=== PATIENT | female | born 1980 | race Hispanic/Latino ===

== ENCOUNTER → 2017-04-01 | Outpatient (CLI) | payer MEDICAID ==
[~2017-04-01] MED LIST: ISOVUE-370 50ML VIAL IV ONE
== END | disposition home or self-care (01) ==
LOC: OIH 10:09
PROVIDERS: ATTEND Family Medicine
DX: H91.90 Unspecified hearing loss, unspecified ear (principal); G93.89 Other specified disorders of brain
CPT/HCPCS: 70470; Q9967

== ENCOUNTER → 2022-07-17 | Outpatient (CLI) | payer BC, MEDICAID | END | disposition home or self-care (01) | LOC: SHCH 07:48 | PROVIDERS: ATTEND Internal Medicine | DX: R94.31 Abnormal electrocardiogram [ECG] [EKG] (principal); R06.02 Shortness of breath | CPT/HCPCS: 93306 ==

== ENCOUNTER → 2023-06-15 | Outpatient (CLI) | payer BC, MEDICAID ==
[~2023-06-15] VITALS: Ht 152.4 cm; Wt 73.5 kg
[~2023-06-15] MED LIST changes: +BUSP10TA3 PO; +CLOB10TA17 PO; -ISOVUE-370 50ML VIAL IV ONE; +LAMO200T PO; +LEVE750T4 PO; +LINA72CA PO; +OMEP40CA21 PO; +TOPI200T PO; +TRINTELLIX PO; +[UNRECOGNIZED DRUG - OTHER] PO
== END ==
LOC: RAH 10:21
PROVIDERS: ATTEND Internal Medicine Gastroenterology
DX: R10.13 Epigastric pain (principal); R93.2 Abnormal findings on diagnostic imaging of liver and biliary tract
CPT/HCPCS: 78227; 81025; A9537

== ENCOUNTER 2023-06-16 09:35 | Day surgery (SDC) | payer BC, MEDICAID ==
[2023-06-16] VITALS (11 sets, daily range): BP systolic 98–123; BP diastolic 54–79; PULSE 59–68; RESP 13–20
[~2023-06-16] VITALS: Ht 152.4 cm; Wt 72.1 kg
[2023-06-16] MEDS: 0.9%NACL 1000ML 1,000 ML IV ONE (10:44)
[2023-06-16] MEDS ORDERED: PROPOFOL 10 MG/ML 20ML VIAL IV ONE (12:09)
== END 2023-06-16 13:40 | disposition home or self-care (01) ==
LOC: ENDO 09:35 → DAH 09:35 → ENDO 13:40
PROVIDERS: ATTEND Internal Medicine Gastroenterology
DX: R10.13 Epigastric pain (principal); K29.50 Unspecified chronic gastritis without bleeding; K21.9 Gastro-esophageal reflux disease without esophagitis; K59.04 Chronic idiopathic constipation; K64.9 Unspecified hemorrhoids; J45.909 Unspecified asthma, uncomplicated; F41.9 Anxiety disorder, unspecified; R19.04 Left lower quadrant abdominal swelling, mass and lump; F32.9 Major depressive disorder, single episode, unspecified; G40.909 Epilepsy, unspecified, not intractable, without status epilepticus; Z83.3 Family history of diabetes mellitus; Z82.5 Family history of asthma and other chronic lower respiratory diseases; Z82.3 Family history of stroke; Z82.49 Family history of ischemic heart disease and other diseases of the circulatory system; Z98.890 Other specified postprocedural states
CPT/HCPCS: 43239; J7030 ×2; J2704; A4620; A4215 ×2; A4223; A7002; A4222; A4221; A4663; A4606; J3490

== ENCOUNTER 2023-07-22 16:38 | Emergency (ER) | payer BC, MEDICAID ==
[~2023-07-22] VITALS: Ht 152.4 cm; Wt 72.6 kg
[~2023-07-22 16:38] MED LIST changes: -CLOB10TA17 PO; +CLOB10TA4 PO
[2023-07-22 17:12] LABS: BASOPHILS # (AUTO) 0.02 K/uL (0.00-0.20); BASOPHILS % (AUTO) 0.3 % (0.0-5.0); EOSINOPHILS # (AUTO) 0.17 K/uL (0.00-0.70); HEMATOCRIT 39.1 % (36-48); IMMATURE GRANULOCYTE ABSOLUTE 0.01 K/uL (0-1); LYMPHOCYTES # (AUTO) 2.1 K/uL (1.0-4.8); MEAN CORPUSCULAR HEMOGLOBIN 29.6 pg (27.0-33.0); MEAN CORPUSCULAR HGB CONC 33.2 g/dL (32.0-36.0); MEAN CORPUSCULAR VOLUME 89.1 fL (79-99); MONOCYTES # (AUTO) 0.3 K/uL (0.1-1.0); MONOCYTES % (AUTO) 5.4 % (3.0-13.0); NEUTROPHILS # (AUTO) 3.2 K/uL (1.8-7.7); NEUTROPHILS % (AUTO) 55.1 % (40.0-77.0); PLATELET COUNT (AUTO) 268 K/uL (130-400); RED BLOOD CELL COUNT(AUTO) 4.39 MIL/uL (4.00-5.50); RED CELL DISTRIBUTION WIDTH 13.1 % (11.0-15.5); WHITE BLOOD COUNT (AUTO) 5.7 K/uL (4.8-10.8)
[2023-07-22 17:23] LABS: CREATININE 0.9 mg/dL (0.5-1.0); POTASSIUM 3.7 mmol/L (3.5-5.1)
[2023-07-22 17:27] LABS: ALBUMIN 3.5 g/dL (3.5-5.0); BILIRUBIN,TOTAL 0.1 mg/dL (0.2-1.0); TOTAL PROTEIN, SERUM 7.5 g/dL (6.0-8.3)
[2023-07-22 18:46] LABS: ADD UA MICROSCOPIC YES; APPEARANCE,URINE CLEAR (CLEAR); BILIRUBIN,URINE NEGATIVE (NEGATIVE); COLOR,URINE LIGHT-YELLOW (YELLOW); GLUCOSE, URINE (UA) NEGATIVE (NEGATIVE); KETONES,URINE NEGATIVE (NEGATIVE); LEUKOCYTE ESTERASE ,URINE 25 Leu/uL (NEGATIVE); NITRATE,URINE NEGATIVE (NEGATIVE); OCCULT BLOOD,URINE MODERATE (NEGATIVE); PROTEIN,URINE NEGATIVE (NEGATIVE); UROBILINOGEN,URINE 0.2 mg/dL (0.2-1.0)
[2023-07-22 18:50] LABS: BACTERIA,URINE RARE /HPF (None Seen); MUCUS,URINE RARE LPF (None Seen); SQUAMOUS EPITHELIAL CELL,UR RARE /HPF (0-2)
[2023-07-22] MEDS ORDERED: LAMO200T10 PO (19:24)
[2023-07-22] MEDS ORDERED: LEVE750T10 PO (19:25)
[2023-07-22] MEDS: DICYCLOMINE 20MG (10MG/ML) AMP IM ONE (19:47)
[2023-07-22 20:17] VITALS: BP 112/71; PULSE 57; RESP 20; O2SAT 100
[2023-07-22] MEDS ORDERED: DICY20TA2 PO (20:27)
[2023-07-22] MEDS ORDERED: CEPH500B PO (20:27)
== END 2023-07-22 20:47 | disposition home or self-care (01) ==
LOC: EDH 16:38
DX: K82.8 Other specified diseases of gallbladder (principal); N39.0 Urinary tract infection, site not specified; F41.9 Anxiety disorder, unspecified; Z79.899 Other long term (current) drug therapy; Z98.890 Other specified postprocedural states
CPT/HCPCS: 99284; 80053; 83690; 85025; 81001; 36415; 96372; J0500

== ENCOUNTER → 2023-07-29 | Outpatient (CLI) | payer BC, MEDICAID ==
[~2023-07-29] MED LIST changes: +CEPH500B PO; +DICY20TA2 PO; +LAMO200T10 PO; +LEVE750T10 PO
== END | disposition home or self-care (01) ==
LOC: RAH 07:16
PROVIDERS: ATTEND Internal Medicine
DX: R10.13 Epigastric pain (principal)
CPT/HCPCS: 78264; A9541

== ENCOUNTER 2023-08-09 06:35 | Day surgery (SDC) | payer BC, MEDICAID ==
[2023-08-05 10:09] LABS: BASOPHILS # (AUTO) 0.04 K/uL (0.00-0.20); BASOPHILS % (AUTO) 0.6 % (0.0-5.0); EOSINOPHILS % (AUTO) 1.5 % (0.0-8.0); HEMATOCRIT 41.1 % (36-48); IMMATURE GRANULOCYTE ABSOLUTE 0.02 K/uL (0-1); LYMPHOCYTES # (AUTO) 2.1 K/uL (1.0-4.8); LYMPHOCYTES % (AUTO) 31.8 % (21.0-51.0); MEAN CORPUSCULAR HEMOGLOBIN 29.3 pg (27.0-33.0); MEAN CORPUSCULAR HGB CONC 32.4 g/dL (32.0-36.0); MEAN CORPUSCULAR VOLUME 90.5 fL (79-99); MONOCYTES # (AUTO) 0.3 K/uL (0.1-1.0); MONOCYTES % (AUTO) 5.2 % (3.0-13.0); NEUTROPHILS # (AUTO) 3.9 K/uL (1.8-7.7); NEUTROPHILS % (AUTO) 60.6 % (40.0-77.0); PLATELET COUNT (AUTO) 288 K/uL (130-400); RED BLOOD CELL COUNT(AUTO) 4.54 MIL/uL (4.00-5.50); RED CELL DISTRIBUTION WIDTH 13.3 % (11.0-15.5); WHITE BLOOD COUNT (AUTO) 6.5 K/uL (4.8-10.8)
[2023-08-05 10:17] VITALS: BP 112/71; PULSE 65; RESP 18
[2023-08-05 10:38] LABS: CREATININE 0.9 mg/dL (0.5-1.0); POTASSIUM 3.6 mmol/L (3.5-5.1)
[2023-08-09] VITALS (17 sets, daily range): BP systolic 93–118; BP diastolic 47–70; PULSE 54–86; RESP 11–16
[~2023-08-09] VITALS: Ht 152.4 cm; Wt 73.6 kg
[~2023-08-09 06:35] MED LIST changes: -CEPH500B PO; -LAMO200T PO; -LEVE750T4 PO; +LORA10TA7 PO
[2023-08-09] MEDS ORDERED: CEFAZOLIN SODIUM 2 GM VIAL ONE (08:24)
[2023-08-09] MEDS: LACTATED RINGERS 1000ML 1,000 ML IV ONE (08:53)
[2023-08-09] MEDS ORDERED: HYDROMORPHONE 1 MG INJ ONE (09:52)
[2023-08-09] MEDS ORDERED: FAMOTIDINE 20MG VIAL IV ONE (09:52)
[2023-08-09] MEDS ORDERED: GLYCOPYRROLATE 0.2 MG/ML 5 ML VIAL ONE (09:57)
[2023-08-09] MEDS ORDERED: MIDAZOLAM HCL 1 MG/ML 2ML VIAL ONE (09:57)
[2023-08-09] MEDS ORDERED: PROPOFOL 10 MG/ML 20ML VIAL IV ONE (09:57)
[2023-08-09] MEDS ORDERED: ROCURONIUM BROMIDE 10MG/1ML 5ML VL ONE (09:58)
[2023-08-09] MEDS ORDERED: FENTANYL CITRATE PF 50 MCG/1 ML 2ML VIAL ONE (09:58)
[2023-08-09] MEDS ORDERED: BUPIVACAINE/PF 0.25% 30ML VIAL IJ ONE (10:03)
[2023-08-09] MEDS: CEFAZOLIN SODIUM 2 GM VIAL IVPB ONE (10:05)
[2023-08-09] MEDS: BUPIVACAINE/EPI/PF 0.25% 10ML VIAL IJ ONE (10:24)
[2023-08-09] MEDS ORDERED: IOHEXOL-350 50ML VIAL IV ONE (11:11)
[2023-08-09] MEDS: FENTANYL CITRATE PF 50 MCG/1 ML 2ML VIAL ONE (11:35)
== END 2023-08-09 13:10 | disposition home or self-care (01) ==
LOC: DAH 06:35
PROVIDERS: ATTEND Surgery
DX: K82.8 Other specified diseases of gallbladder (principal); K81.1 Chronic cholecystitis; J45.909 Unspecified asthma, uncomplicated; F41.9 Anxiety disorder, unspecified; K21.9 Gastro-esophageal reflux disease without esophagitis; F32.A Depression, unspecified; G40.909 Epilepsy, unspecified, not intractable, without status epilepticus; Z79.899 Other long term (current) drug therapy
CPT/HCPCS: 80048; 84703; 85025; 86850 ×2; 86900 ×2; 86901 ×2; 36415 ×2; 93005; 47563; 81025; 88304; 74300; A6260; A4663; J7030; A4215 ×2; C1758; J7120; J3490 ×4; J3010 ×2; J1170; J0665; J2250; J2704; Q9967 ×2; J0690 ×2; C1769 ×3; A4649 ×2; A4930; A4223; A4222; A4221; A4600; 48400; G0168

== ENCOUNTER 2025-01-12 10:42 | Emergency (ER) | payer BC, MEDICAID ==
[~2025-01-12] VITALS: Ht 149.9 cm; Wt 73.0 kg
[~2025-01-12 10:42] MED LIST changes: +CENO200T PO; +LAMO200T PO; +TOPI200C5 PO
[2025-01-12 11:06] LABS: IMMATURE GRANULOCYTE ABSOLUTE 0.02 K/uL (0-1); NUCLEATED RED BLOOD CELLS 0.0 % (0.0-0.19); PLATELET COUNT (AUTO) 324 K/uL (130-400); RED BLOOD CELL COUNT(AUTO) 4.14 MIL/uL (4.00-5.50); RED CELL DISTRIBUTION WIDTH 15.6 % (11.0-15.5); WHITE BLOOD COUNT (AUTO) 5.8 K/uL (4.8-10.8)
[2025-01-12 11:24] LABS: CREATININE 0.8 mg/dL (0.5-1.0); GLOMERULAR FILTR. RATE CALC 93.0 mL/min (>90); GLUCOSE,RANDOM 87.0 mg/dL (70-105); SODIUM SERUM 141.0 mmol/L (136-145); UREA NITROGEN, BLOOD 19.0 mg/dL (7-18)
[2025-01-12 11:27] LABS: ADD UA MICROSCOPIC NO; APPEARANCE,URINE CLEAR (CLEAR); GLUCOSE, URINE (UA) NEGATIVE (NEGATIVE); LEUKOCYTE ESTERASE ,URINE NEGATIVE Leu/uL (NEGATIVE); NITRATE,URINE NEGATIVE (NEGATIVE); OCCULT BLOOD,URINE NEGATIVE (NEGATIVE)
[2025-01-12] MEDS: 0.9%NACL 1000ML 1,000 ML IV STA (11:29)
--- NOTE | 2025-01-12 13:33 | ERN ---
ED Note History of Present Illness Stated Complaint: FEELING DIZZY Chief Complaint: Dizzy/Light Headed Time Seen by MD: 10:45 Time Seen by Midlevel: 10:48 Dictation: 44-year-old female with a history of seizure coming in with complaints of feeling dizzy. Patient was out in the lobby because she has a family member in one of the patient's that was being seen here. Patient states that she stood up from the lobby chair and felt dizzy. Patient states she is compliant with a home medications. Mother is at bedside and states she is acting at her baseline. Allergies: Coded Allergies: No Known Drug Allergies (Unverified Allergy, Unknown, 12/21/24) Home Meds Reported Medications Lamotrigine (Lamotrigine) 200 Mg Tablet, 2 TAB PO HS for 30 Days, #30 TAB 0 Refills 12/22/24 Topiramate (Topiramate ER) 200 Mg Cap.spr.24, 2 CAP PO HS for 30 Days, #60 CAP 0 Refills 12/22/24 Cenobamate (Xcopri) 200 Mg Tablet, 200 MG PO HS, TAB 12/21/24 Lamotrigine (Lamictal) 200 Mg Tablet, 200 MG PO HS, TAB 12/21/24 Past Medical History Past Medical History: Depression, Seizure Surgical History: Other Surgical History Other: temporal lobectomy, shunt, seizure implant Review of System Dictation Constitutional: Negative for fever,chills, and weight loss Eyes: Negative for injury, pain,redness, and discharge ENT: Negative for injury,pain or swelling Cardiovascular: Negative for chest pain, palpitations, and edema Respiratory: Negative for shortness of breath, cough, and wheezing, Abdomen/GI: Negative for abdominal pain, nausea, vomiting, diarrhea, and constipation Back: Negative for injury and pain : Negative for injury, bleeding and discharge MS/Extremity: Negative for injury and deformity Skin: Negative for rash, and discoloration Neuro: Negative for headache, weakness, numbness, tingling, and seizure complaining of dizziness Psych: Negative for suicide ideation, homicidal ideation, and hallucinations Review of Systems: was completed Initial Vital Sign VS Vital Signs Date Time Temp Pulse Resp B/P (MAP) Pulse Ox O2 Delivery O2 Flow Rate FiO2 01/12/25 10:44 98.8 57 16 110/66 100 Room Air 01/12/25 11:12 0 21 Physical Exam Dictation General: awake, alert, NAD Head/Face: Normocephalic, atraumatic Eyes: PERRL, EOMI, vision at baseline ENT: oral cavity clear, TMs clear, no signs of infection Neck: Trachea midline, supple, no nuchal rigidity Cardiovascular: RRR, normal S1/S2, No MRGs, no JVD Respiratory: CTAB, no respiratory distress, No rales or wheezes Abdomen: Soft, non-tender, non-distended, normal bowel sounds, no guarding or rebound. Skin: Warm, dry, normal turgor, no rash MS/Extremity: Pulses equal, no cyanosis, neurovascular intact, FROM Neuro: COAx4, GCS 15, strength 5/5, CN 2-12 intact, normal cerebellar exam, normal gait, Psych: Normal behavior, mood, and affect normal Results (Laboratory/Radiology) Laboratory/Radiology Laboratory Tests Test 01/12/25 10:39 01/12/25 11:15 White Blood Count 5.8 K/uL (4.8-10.8) Red Blood Count 4.14 MIL/uL (4.00-5.50) Hemoglobin 11.6 g/dL (12.0-16.0) L Hematocrit 35.7 % (36-48) L Mean Corpuscular Volume 86.2 fL (79-99) Mean Corpuscular Hemoglobin 28.0 pg (27.0-33.0) Mean Corpuscular Hemoglobin Concent 32.5 g/dL (32.0-36.0) Red Cell Distribution Width 15.6 % (11.0-15.5) H Platelet Count 324 K/uL (130-400) Mean Platelet Volume 10.1 fL (7.5-10.5) Immature Granulocyte % (Auto) 0.3 % (0-1) Neutrophils (%) (Auto) 50.4 % (40.0-77.0) Lymphocytes (%) (Auto) 42.1 % (21.0-51.0) Monocytes (%) (Auto) 5.5 % (3.0-13.0) Eosinophils (%) (Auto) 1.2 % (0.0-8.0) Basophils (%) (Auto) 0.5 % (0.0-5.0) Neutrophils # (Auto) 2.9 K/uL (1.8-7.7) Lymphocytes # (Auto) 2.4 K/uL (1.0-4.8) Monocytes # (Auto) 0.3 K/uL (0.1-1.0) Eosinophils # (Auto) 0.07 K/uL (0.00-0.70) Basophils # (Auto) 0.03 K/uL (0.00-0.20) Absolute Immature Granulocyte (auto 0.02 K/uL (0-1) Nucleated Red Blood Cells 0.0 % (0.0-0.19) Sodium Level 141 mmol/L (136-145) Potassium Level 4.1 mmol/L (3.5-5.1) Chloride Level 108 mmol/L (101-111) Carbon Dioxide Level 24 mmol/L (21-32) Blood Urea Nitrogen 19 mg/dL (7-18) H Creatinine 0.8 mg/dL (0.5-1.0) Glomerular Filtration Rate Calc 93 mL/min (>90) Random Glucose 87 mg/dL (70-105) Total Calcium 7.9 mg/dL (8.5-10.1) L Urine Color LIGHT-YELLOW (YELLOW) Urine Appearance CLEAR (CLEAR) Urine pH 7.0 (5.0-8.0) Urine Specific [place] 1.032 (1.001-1.031) Urine Protein NEGATIVE mg/dL (NEGATIVE) Urine Glucose (UA) NEGATIVE mg/dL (NEGATIVE) Urine Ketones NEGATIVE mg/dL (NEGATIVE) Urine Occult Blood NEGATIVE (NEGATIVE) Urine Nitrate NEGATIVE (NEGATIVE) Urine Bilirubin NEGATIVE mg/dL (NEGATIVE) Urine Urobilinogen 0.2 mg/dL (0.2-1.0) Urine Leukocyte Esterase NEGATIVE Danielle/uL TS: The orbits are unremarkable. SINUSES AND MASTOIDS: The paranasal sinuses and mastoid air cells are clear. BONES: No fracture. Left craniotomy changes. IMPRESSION: 1. No acute intracranial findings. 2. Stable right temporal lobe hypoattenuation area, likely chronic. 3. Unchanged right ventricular shunt catheter. 4. Left craniotomy changes. /[facility] Labs Reviewed?: Yes ED Course ED Course Orders Procedure Category Date Status Time Cbc With Differential LAB 01/12/25 Complete 10:50 Basic Metabolic Panel LAB 01/12/25 Complete 10:50 0.9%Nacl 1000ml (Ns PHA 01/12/25 Complete 1000ml) 10:50 Meclizine Hcl 25 Mg PHA 01/12/25 Complete (Antivert 25 Mg) 10:50 Urinalysis Profile LAB 01/12/25 Complete 10:50 Ct Head/Brain W/O CT 01/12/25 Resulted Contrast 10:50 Current Medications Medications (Trade) Dose Ordered Sig/Romario Route PRN Reason Start Time Stop Time Status Last Admin Dose Admin Meclizine HCl (ANTIvert 25 mg) 25 mg ONCE STAT PO 01/12/25 10:50 01/12/25 10:56 DC 01/12/25 11:35 Sodium Chloride 1,000 ml @ 1,000 mls/hr Q1H STAT IV 01/12/25 10:50 01/12/25 11:49 DC Vital Signs Date Time Temp Pulse Resp B/P (MAP) Pulse Ox O2 Delivery O2 Flow Rate FiO2 01/12/25 17:05 98.8 68 16 137/65 100 Room Air* 0 21 01/12/25 15:23 98.8 62 16 142/62 100 Room Air* 0 21 01/12/25 11:12 98.8 57 16 150/66 100 Room Air* 0 21 01/12/25 10:44 98.8 57 16 110/66 100 Room Air 1705/PATIENT NEUROLOGICALLY INTACT AT BASELINE PER HER MOTHER AND SON. SHE IS AWARE CT IS NEGATIVE THERE WAS NO SHUNT MALFUNCTION DISCHARGED HOME WITH DIZZINESS AND MECLIZINE Medical Decision Making MDM MDM: DIFFERENTIAL DIAGNOSIS: POLARITY TESTER SHUNT MALFUNCTION/SUBDURAL HEMATOMA/MIDLINE SHIFT/ELECTROLYTE IMBALANCE/DEHYDRATION/VERTIGO RATIONALE: TESTS CONSIDERED AND ORDERED SECONDARY TO SHARED DECISION MAKING I NCLUDE: PREVIOUS OUTSIDE RECORDS REVIEWED: OLD ER VISITS. RISK OF COMPLICATION AND/OR MORBIDITY OR MORTALITY OF PATIENT MANAGEMENT: NONE MEDICATIONS-PER MEDICATION RECONCILIATION NEED FOR HOSPITALIZATION: PATIENT DOES NOT MEET CRITERIA FOR HOSPITALIZATION. L NONE NEED FOR EMERGENCY MAJOR/MINOR SURGERY: NO THERE ARE NO SOCIAL CONCERNS WITH THIS PATIENT. PRESCRIPTION DRUG MANAGEMENT MECLIZINE PRESCRIPTIONS WILL INCLUDE SYMPTOMATIC CARE PATIENT'S PRIOR EXTERNAL MEDICAL RECORDS FROM OTHER ER VISITS WERE REVIEWED BY ME INDICATED. PRIOR TESTING AND RESULTS FROM PREVIOUS VISITS WERE REVIEWED. PRIOR TESTS WERE TAKEN INTO ACCOUNT WITH MEDICAL DECISION MAKING AND RESOURCE UTILIZATION, INDEPENDENT HISTORIAN/HISTORIANS WERE USED TO OBTAIN COMPLETE MEDICAL HISTORY. I INDEPENDENTLY INTERPRETED THE TEST THAT WERE PERFORMED, RESULTS WERE REVIEWED BY ME AND CONSIDERED FINDINGS ON RADIOLOGY IF ORDERED. MEDICAL MANAGEMENT AND EXAMINATION INTERPRETATION DISCUSSIONS WERE HAD BY ME WITH OTHER QUALIFIED HEALTHCARE PROFESSIONALS INDICATED FOR THE PATIENT'S CARE. DX & DISP Disposition: Discharge Departure Impression: Primary Impression: Dizziness Condition: Stable Scripts Meclizine HCl (Meclizine HCl) 25 Mg Tablet 25 MG PO TID for vertigo, #30 TAB 0 Refills Prov: MIC RAMIREZ 01/12/25 Additional Instructions: FOLLOW-UP WITH PRIMARY CARE PROVIDER IN 1 TO 2 DAYS. TAKE MEDICATIONS DIRECTED HERE IN THE EMERGENCY ROOM. OKAY TO CONTINUE HOME MEDICATIONS UNLESS OTHERWISE DISCUSSED DURING YOUR VISIT IN THE EMERGENCY ROOM TODAY. RETURN TO YOUR NEAREST EMERGENCY ROOM IF SYMPTOMS WORSEN OR IF THERE IS NO IMPROVEMENT. CALL 911 IF YOU NEED IMMEDIATE ASSISTANCE. TAKE TYLENOL OR MOTRIN [id number] NEEDED AND IF NO CONTRAINDICATIONS ARE PRESENT. INCREASE ORAL HYDRATION. A WOUND CULTURE OR URINE CULTURE WAS ORDERED HERE IN THE EMERGENCY ROOM DEPARTMENT PLEASE FOLLOW-UP WITH PRIMARY CARE PROVIDER AND ADVISE THEM TO GET REPEAT PORTS FROM OUR FACILITY. IF YOU HAD ANY TOSHA WRAP/SPLINTS T HAT WERE APPLIED HERE, PLEASE DO NOT REMOVE THEM UNTIL YOU SEE YOUR PRIMARY CARE OR SPECIALTY. TAKE MECLIZINE EVERY 8 HOURS FOR THE NEXT TWO DAYS. FOLLOW UP WITH YOUR PRIMARY CARE DOCTOR ON Tuesday FOR MANAGEMENT. Referrals: PERICO MCLAIN DO (PCP) Time of Disposition: 17:09 I have reviewed the case, and I agree with, Diagnosis and Plan DOMINGA CUI CNP Jan 12, 2025 13:33 MIC RAMIREZ Jan 12, 2025 17:11
--- NOTE | 2025-01-12 17:02 | HMCIMG ---
EXAM: CT Head Without IV contrast. CLINICAL HISTORY: sudden onset dizziness (Hx) / sudden onset dizziness for sure TECHNIQUE: Axial computed tomography images of the head/brain without intravenous contrast. COMPARISON: CT HEAD DATED 01/08 11:58 EDT FINDINGS: BRAIN: No evidence of acute hemorrhage. No mass lesion. 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 No midline shift or extra-axial collections. Left temporal lobe chronic changes of encephalomalacia VENTRICLES: No hydrocephalus. Exvacuolation of the left lateral ventricle. Right ventricular shunt catheter tip seen abutting the septum pellucidum. ORBITS: The orbits are unremarkable. SINUSES AND MASTOIDS: The paranasal sinuses and mastoid air cells are clear. BONES: No fracture. Left craniotomy changes. IMPRESSION: 1. No acute intracranial findings. 2. Stable right temporal lobe hypoattenuation area, likely chronic. 3. Unchanged right ventricular shunt catheter. 4. Left craniotomy changes. /[place]
--- NOTE | 2025-01-12 17:04 | NUR ---
PT NUMBER [phone]
[2025-01-12 17:05] VITALS: BP 137/65; PULSE 68; RESP 16; TEMP 98.8; O2SAT 100
[2025-01-12] MEDS ORDERED: MECL-302 PO (17:10)
== END 2025-01-12 17:13 | disposition home or self-care (01) ==
LOC: MERGE 10:42 → EDH 10:42
DX: R42 Dizziness and giddiness (principal); Z79.899 Other long term (current) drug therapy; Z98.890 Other specified postprocedural states
CPT/HCPCS: 36415; 70450; 80048; 81003; 82948; 85025; 99284

== ENCOUNTER 2025-03-19 11:10 | Emergency (ER) | payer BC, MEDICAID ==
[~2025-03-19] VITALS: Ht 149.9 cm; Wt 72.6 kg
[~2025-03-19 11:10] MED LIST changes: +MECL-302 PO
[2025-03-19 11:32] LABS: IMMATURE GRANULOCYTE ABSOLUTE 0.01 K/uL (0-1); NUCLEATED RED BLOOD CELLS 0.0 % (0.0-0.19); PLATELET COUNT (AUTO) 298 K/uL (130-400); RED BLOOD CELL COUNT(AUTO) 4.59 MIL/uL (4.00-5.50); RED CELL DISTRIBUTION WIDTH 16.9 % (11.0-15.5); WHITE BLOOD COUNT (AUTO) 6.3 K/uL (4.8-10.8)
[2025-03-19 11:40] LABS: CREATININE 0.9 mg/dL (0.5-1.0); GLOMERULAR FILTR. RATE CALC 80.0 mL/min (>90); GLUCOSE,RANDOM 96.0 mg/dL (70-105); SODIUM SERUM 141.0 mmol/L (136-145); UREA NITROGEN, BLOOD 21.0 mg/dL (7-18)
[2025-03-19 11:42] LABS: INR 0.97 (0.85-1.15)
[2025-03-19 11:49] LABS: APPEARANCE,URINE CLOUDY (CLEAR); GLUCOSE, URINE (UA) NEGATIVE (NEGATIVE); LEUKOCYTE ESTERASE ,URINE NEGATIVE Leu/uL (NEGATIVE); NITRATE,URINE NEGATIVE (NEGATIVE); OCCULT BLOOD,URINE +- (TRACE) (NEGATIVE)
[2025-03-19 11:52] LABS: HCG,QUALITATIVE URINE NEGATIVE (NEGATIVE)
[2025-03-19 11:52] LABS: HCG,QUANTITATIVE 0.0 mIU/mL (0-5)
[2025-03-19 11:54] LABS: SQUAMOUS EPITHELIAL CELL,UR FEW /HPF (0-2)
--- NOTE | 2025-03-19 13:31 | ERN ---
General Chief Complaint: Seizure Stated Complaint: HEADACHE/SEIZURE Time Seen by MD: 11:15 History of Present Illness Initial Comments 44-year-old female past medical history of seizures came in for 1 episode of seizure which occurred at home. Patient could this is a she has not postictal remember episode. Patient is having slight headache due to seizure activity. Patient denies trauma with the episode. Patient is on Keppra and has follow with neurology. Patient otherwise has no concerns. Allergies: Coded Allergies: No Known Drug Allergies (Unverified Allergy, Unknown, 06/15/23) Home Meds Active Scripts Meclizine HCl (Meclizine HCl) 25 Mg Tablet, 25 MG PO TID for vertigo, #30 TAB 0 Refills Prov:MIC RAMIREZ PERSON INVESTIGATOR 01/12/25 Dicyclomine HCl (Bentyl) 20 Mg Tab, 20 MG PO TIDP PRN for PAIN, #60 TAB Prov:BINA RUSH MD 07/22/23 Reported Medications Lamotrigine (Lamotrigine) 200 Mg Tablet, 2 TAB PO HS for 30 Days, #30 TAB 0 Refills 12/22/24 Topiramate (Topiramate ER) 200 Mg Cap.spr.24, 2 CAP PO HS for 30 Days, #60 CAP 0 Refills 12/22/24 Cenobamate (Xcopri) 200 Mg Tablet, 200 MG PO HS, TAB 12/21/24 Lamotrigine (Lamictal) 200 Mg Tablet, 200 MG PO HS, TAB 12/21/24 Loratadine (Loratadine) 10 Mg Tablet, 10 MG PO AD PRN for allergies, TAB 08/05/23 Clobazam (Clobazam) 10 Mg Tablet, 10 MG PO HS, TAB 08/05/23 Levetiracetam (Levetiracetam) 750 Mg Tablet, 1500 MG PO BID, TAB 07/22/23 Lamotrigine (Lamotrigine) 200 Mg Tablet, 400 MG PO HS, TAB 07/22/23 Omeprazole (Omeprazole) 40 Mg Capsule.dr, 40 MG PO BID, CAP 06/15/23 Topiramate (Topamax) 200 Mg Tablet, 400 MG PO HS, TAB 06/15/23 [Trintellix] No Conflict Check, 20 MG PO DAILY 06/15/23 [Roxulti] No Conflict Check, 3 MG PO DAILY 06/15/23 Buspirone HCl (Buspirone HCl) 10 Mg Tablet, 10 MG PO BID, TAB 06/15/23 Linaclotide (Linzess) 72 Mcg Capsule, 72 MCG PO DAILY, CAP 06/15/23 Clobazam (Clobazam) 10 Mg Tablet, 10 MG PO HS, TAB 06/15/23 Past Medical History Past Medical History: Anxiety, Other Medical History Other: EPILEPSY Past Surgical History: Other Surgical History Other: BILINGUAL 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, VAGUS NERVE STIMULATOR Social History Social History: Negative ROS Dictation Seizure Physical Exam General Appearance: (+) no apparent distress Orientation: (+) alert, (+) oriented x 3 Respiratory: (+) chest non-tender, (+) lungs clear Heart: (+) regular, (+) no gallop Vascular: (+) no edema, (+) normal peripheral pulse Gastrointestinal: (+) soft, (+) non-tender, (+) no organomegaly, (+) bowel sound present Extremities: (+) normal range of motion, (+) non-tender Results Laboratory and Microbiology Lab and Micro Result Laboratory Tests Test 03/19/25 11:25 03/19/25 11:34 White Blood Count 6.3 K/uL (4.8-10.8) Red Blood Count 4.59 MIL/uL (4.00-5.50) Hemoglobin 13.6 g/dL (12.0-16.0) Hematocrit 42.5 % (36-48) Mean Corpuscular Volume 92.6 fL (79-99) Mean Corpuscular Hemoglobin 29.6 pg (27.0-33.0) Mean Corpuscular Hemoglobin Concent 32.0 g/dL (32.0-36.0) Red Cell Distribution Width 16.9 % (11.0-15.5) H Platelet Count 298 K/uL (130-400) Mean Platelet Volume 10.2 fL (7.5-10.5) Immature Granulocyte % (Auto) 0.2 % (0-1) Neutrophils (%) (Auto) 61.8 % (40.0-77.0) Lymphocytes (%) (Auto) 31.7 % (21.0-51.0) Monocytes (%) (Auto) 4.6 % (3.0-13.0) Eosinophils (%) (Auto) 1.4 % (0.0-8.0) Basophils (%) (Auto) 0.3 % (0.0-5.0) Neutrophils # (Auto) 3.9 K/uL (1.8-7.7) Lymphocytes # (Auto) 2.0 K/uL (1.0-4.8) Monocytes # (Auto) 0.3 K/uL (0.1-1.0) Eosinophils # (Auto) 0.09 K/uL (0.00-0.70) Basophils # (Auto) 0.02 K/uL (0.00-0.20) Absolute Immature Granulocyte (auto 0.01 K/uL (0-1) Nucleated Red Blood Cells 0.0 % (0.0-0.19) Prothrombin Time 10.3 SEC (9.6-11.6) Prothromb Time International Ratio 0.97 (0.85-1.15) Activated Partial Thromboplast Time 30.2 SEC (26.3-35.5) Sodium Level 141 mmol/L (136-145) Potassium Level 3.8 mmol/L (3.5-5.1) Chloride Level 112 mmol/L (101-111) H Carbon Dioxide Level 21 mmol/L (21-32) Blood Urea Nitrogen 21 mg/dL (7-18) H Creatinine 0.9 mg/dL (0.5-1.0) Glomerular Filtration Rate Calc 80 mL/min (>90) Random Glucose 96 mg/dL (70-105) Lactic Acid Level 1.0 mmol/L (0.8-2.5) Total Calcium 7.6 mg/dL (8.5-10.1) L Human Chorionic Gonadotropin, Quant 0 mIU/mL (0-5) Urine Color YELLOW (YELLOW) Urine Appearance CLOUDY (CLEAR) H Urine pH 6.0 (5.0-8.0) Urine Specific [place] 1.038 (1.001-1.031) Urine Protein 20 mg/dL (NEGATIVE) H Urine Glucose (UA) NEGATIVE mg/dL (NEGATIVE) Urine Ketones NEGATIVE mg/dL (NEGATIVE) Urine Occult Blood +- (TRACE) (NEGATIVE) H Urine Nitrate NEGATIVE (NEGATIVE) Urine Bilirubin NEGATIVE mg/dL (NEGATIVE) Urine Urobilinogen 2.0 mg/dL (0.2-1.0) H Urine Leukocyte Esterase NEGATIVE Danielle/uL Urine RBC 11-25 /HPF (0-1) H Urine WBC 2-5 /HPF (0-1) H Urine Squamous Epithelial Cells FEW /HPF (0-2) Urine Bacteria None /HPF (None Seen) Urine HCG, Qualitative NEGATIVE (NEGATIVE) MDM MDM: Differential diagnosis: Rationale: Tests considered and ordered secondary to shared decision making include: Previous outside records reviewed: Old ER visits. Risk of complication and/or morbidity or mortality of patient management: None Medications-Per medication reconciliation Need for hospitalization: Patient does not meet criteria for hospitalization. Need for emergency major/minor surgery: No There are no social concerns with this patient. Prescription drug management Prescriptions will include symptomatic care Patient's prior external medical records from other ER visits were reviewed by me as indicated. Prior testing and results from previous visits were reviewed. Prior tests were taken into account with medical decision making and resource utilization, independent historian/historians were used to obtain complete medical history. I independently interpreted the test that were performed, results were reviewed by me and considered findings on radiology if ordered. Medical management and examination interpretation discussions were had by me with other qualified healthcare professionals as indicated for the patient's care. ED Course Orders Procedure Category Date Status Time Cbc With Differential LAB 03/19/25 Complete 11:17 Basic Metabolic Panel LAB 03/19/25 Complete 11:17 Lactic Acid LAB 03/19/25 Complete 11:17 Pt And Ptt LAB 03/19/25 Complete 11:17 Urinalysis LAB 03/19/25 Complete W/Microscopic 11:17 Hcg,Quantitative LAB 03/19/25 Complete 11:17 ,Urine Test LAB 03/19/25 Complete 11:17 Levetiracetam 500 PHA 03/19/25 Complete Mg/5 M[address] V (Keppra 5 11:37 Acetaminophen 500mg PHA 03/19/25 Complete Tab (Tylenol 500mg T 12:39 Acetaminophen 500mg PHA 03/19/25 Complete Tab (Tylenol 500mg T 13:00 Current Medications Medications (Trade) Dose Ordered Sig/Romario Route PRN Reason Start Time Stop Time Status Last Admin Dose Admin Acetaminophen (TYLenol 500MG TAB) 500 mg STK-MED ONCE .ROUTE 03/19/25 12:39 03/19/25 12:39 DC Acetaminophen (TYLenol 500MG TAB) 1,000 mg ONCE ONCE PO 03/19/25 13:00 03/19/25 13:01 DC 03/19/25 12:43 Levetiracetam (kepPRA 500 MG/5 ML SD VIAL) 1,000 mg ONCE STAT IV 03/19/25 11:37 03/19/25 11:39 DC 03/19/25 11:44 Vital Signs Date Time Temp Pulse Resp B/P (MAP) Pulse Ox O2 Delivery O2 Flow Rate FiO2 03/19/25 11:46 97.9 54 15 112/67 97 Room Air* 0 21 03/19/25 11:11 98.1 64 16 108/61 98 Room Air DX & DISP Disposition: Discharge Departure Impression: Primary Impression: Headache Additional Impression: Epilepsy Condition: Stable Additional Instructions: Follow up with your Primary physcian in 2-3 days. Take medications as prescribed. Please return to the emergency if symptoms return or worsen. Referrals: JAKE MARCUS MD (PCP) LYNDON BHATIA MD Mar 19, 2025 13:31
[2025-03-19 13:36] VITALS: BP 144/72; PULSE 61; RESP 15; TEMP 97.9; O2SAT 98
== END 2025-03-19 13:38 | disposition home or self-care (01) ==
LOC: EDH 11:10
DX: G40.909 Epilepsy, unspecified, not intractable, without status epilepticus (principal); R51.9 Headache, unspecified; F41.9 Anxiety disorder, unspecified; Z79.899 Other long term (current) drug therapy; Z98.2 Presence of cerebrospinal fluid drainage device
CPT/HCPCS: 99284; 96374; 80048; 84702; 85025; 85610; 85730; 83605; 81001; 81025; 36415; J1953

== ENCOUNTER 2025-03-23 19:03 | Emergency (ER) | payer BC, MEDICAID ==
[~2025-03-23] VITALS: Ht 149.9 cm; Wt 75.7 kg
[2025-03-23 19:33] LABS: IMMATURE GRANULOCYTE ABSOLUTE 0.01 K/uL (0-1); NUCLEATED RED BLOOD CELLS 0.0 % (0.0-0.19); PLATELET COUNT (AUTO) 257 K/uL (130-400); RED BLOOD CELL COUNT(AUTO) 4.35 MIL/uL (4.00-5.50); RED CELL DISTRIBUTION WIDTH 16.0 % (11.0-15.5); WHITE BLOOD COUNT (AUTO) 5.3 K/uL (4.8-10.8)
[2025-03-23 19:40] LABS: CREATININE 1.0 mg/dL (0.5-1.0); GLOMERULAR FILTR. RATE CALC 71.0 mL/min (>90); GLUCOSE,RANDOM 85.0 mg/dL (70-105); SODIUM SERUM 141.0 mmol/L (136-145); UREA NITROGEN, BLOOD 18.0 mg/dL (7-18)
[2025-03-23 19:55] LABS: CREATINE KINASE, TOTAL 33.0 U/L (21-232)
--- NOTE | 2025-03-23 20:11 | ERN ---
General Chief Complaint: Dizzy/Light Headed Stated Complaint: WITNESSED SEIZURE Time Seen by MD: 19:05 Source: patient, family History of Present Illness Initial Comments Patient is a 39-year-old female with a extensive history of ongoing seizures. 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 Per family member and patient she did not has a seizure she felt very dizzy but she remembers all the questions that were being asked of her when she found the dizziness. She also states in the past when she has seizures she does not recall the questions being asked but this time she did not. Allergies: Coded Allergies: No Known Drug Allergies (Unverified Allergy, Unknown, 06/15/23) Home Meds Active Scripts Meclizine HCl (Meclizine HCl) 25 Mg Tablet, 25 MG PO TID for vertigo, #30 TAB 0 Refills Prov:MIC RAMIREZ PAPIER MACHE' MOLDER 01/12/25 Dicyclomine HCl (Bentyl) 20 Mg Tab, 20 MG PO TIDP PRN for PAIN, #60 TAB Prov:BINA RUSH MD 07/22/23 Reported Medications Lamotrigine (Lamotrigine) 200 Mg Tablet, 2 TAB PO HS for 30 Days, #30 TAB 0 Refills 12/22/24 Topiramate (Topiramate ER) 200 Mg Cap.spr.24, 2 CAP PO HS for 30 Days, #60 CAP 0 Refills 12/22/24 Cenobamate (Xcopri) 200 Mg Tablet, 200 MG PO HS, TAB 12/21/24 Lamotrigine (Lamictal) 200 Mg Tablet, 200 MG PO HS, TAB 12/21/24 Loratadine (Loratadine) 10 Mg Tablet, 10 MG PO AD PRN for allergies, TAB 08/05/23 Clobazam (Clobazam) 10 Mg Tablet, 10 MG PO HS, TAB 08/05/23 Levetiracetam (Levetiracetam) 750 Mg Tablet, 1500 MG PO BID, TAB 07/22/23 Lamotrigine (Lamotrigine) 200 Mg Tablet, 400 MG PO HS, TAB 07/22/23 Omeprazole (Omeprazole) 40 Mg Capsule.dr, 40 MG PO BID, CAP 06/15/23 Topiramate (Topamax) 200 Mg Tablet, 400 MG PO HS, TAB 06/15/23 [Trintellix] No Conflict Check, 20 MG PO DAILY 06/15/23 [Roxulti] No Conflict Check, 3 MG PO DAILY 06/15/23 Buspirone HCl (Buspirone HCl) 10 Mg Tablet, 10 MG PO BID, TAB 06/15/23 Linaclotide (Linzess) 72 Mcg Capsule, 72 MCG PO DAILY, CAP 06/15/23 Clobazam (Clobazam) 10 Mg Tablet, 10 MG PO HS, TAB 06/15/23 Past Medical History Past Medical History: Anxiety, CVA, Seizure, TIA, Other Medical History Other: EPILEPSY Past Surgical History: Other Surgical History Other: KNOCKOUT MACHINE OPERATOR SHUNT, VAGUS NERVE STIMULATOR, L CRANIOTOMY Social History Social History: Negative ROS Dictation CONSTITUTIONAL: No chills, no fever, weakness, no diaphoresis, no malaise. HEAD/FACE: No signs of trauma. EENT: No eye pain, no blurred vision, no tearing, no double vision, no ear pain, no ear discharge, no nose pain, no nasal congestion, no throat pain, no throat swelling, no mouth pain. RESPIRATORY: No cough, no orthopnea, no SOB, no stridor, no wheezing. CARDIOVASCULAR: No chest pain, no edema, no palpitations, no syncope. GASTROINTESTINAL/ABDOMINAL: No abdominal pain, no constipation, no diarrhea, no nausea, no vomiting. GENITOURINARY: No abnormal discharge, no dysuria, no frequent urination, no hematuria. No complaints of pain in the genitals. MUSCULOSKELETAL: No back pain, no gout, no joint pain, no joint swelling, no muscle pain, no muscle stiffness, no neck pain. INTEGUMENTARY: No change in color, no change in hair/nails, no dryness, no lesion, no lumps, no rash. NEUROLOGICAL/PSYCH: No anxiety, not depressed, no emotional problem, no headache, no numbness, no pre-existing deficit, no history of seizures, no tremors, no weakness. HEMATOLOGIC/LYMPHATIC: Not anemic, no history of blood clots, no apparent bleeding, no bruising, glands not swollen. All Systems Negative, Except as Noted. Physical Exam Physical Exam Dictation In his VITAL SIGNS: Reviewed. GENERAL APPEARANCE: Alert, oriented x3, no acute distress, obese. HEAD AND FACE: Non-traumatic. EYES: PERRL, pink conjunctivas, eyelid no trauma, anterior chamber clear. EARS: Pinnas intact and no signs of trauma or erythema. Ear canals clear and no discharge. TMs no erythema. NOSE: No discharge, no bleeding. OROPHARYNX: Mouth normal, teeth no caries, tongue pink. Pharynx clear, no erythema. Tonsils no exudates, no abscesses noted. Mucous membrane moist. NECK: Supple, non-tender, no thyromegaly, no masses, no JVD, no bruits. BREAST: Deferred. CHEST: No tenderness, no crepitus, no paradoxical movement, no retractions. LUNGS: Clear, well-ventilated, symmetric, no rales, no wheezing, no rhonchi, no stridor, good breath sounds bilaterally. HEART: Regular rate, regular rhythm, no murmur, no gallops. VASCULAR: No peripheral edema. ABDOMEN: Soft, positive bowel sounds, nondistended, no guarding, nontender, no rebound, no masses no hepatomegaly, no splenomegaly, no King's sign, no hernias. RECTAL: Deferred. GENITAL: Deferred. NEUROLOGICAL: Normal speech, gross motor function intact, gross sensory function intact. MUSCULOSKELETAL: Neck nontender, full range of motion, back nontender, full range of motion. EXTREMITIES: Nontender, full range of motion. SKIN: Color pink, dry, no turgor, no rash, no lacerations, no abrasions, no contusions. LYMPHATICS: Deferred. Results Laboratory and Microbiology Lab and Micro Result Laboratory Tests Test 03/23/25 19:25 03/23/25 19:58 03/23/25 22:13 White Blood Count 5.3 K/uL (4.8-10.8) Red Blood Count 4.35 MIL/uL (4.00-5.50) Hemoglobin 13.0 g/dL (12.0-16.0) Hematocrit 40.7 % (36-48) Mean Corpuscular Volume 93.6 fL (79-99) Mean Corpuscular Hemoglobin 29.9 pg (27.0-33.0) Mean Corpuscular Hemoglobin Concent 31.9 g/dL (32.0-36.0) L Red Cell Distribution Width 16.0 % (11.0-15.5) H Platelet Count 257 K/uL (130-400) Mean Platelet Volume 10.2 fL (7.5-10.5) Immature Granulocyte % (Auto) 0.2 % (0-1) Neutrophils (%) (Auto) 52.9 % (40.0-77.0) Lymphocytes (%) (Auto) 37.8 % (21.0-51.0) Monocytes (%) (Auto) 6.4 % (3.0-13.0) Eosinophils (%) (Auto) 2.3 % (0.0-8.0) Basophils (%) (Auto) 0.4 % (0.0-5.0) Neutrophils # (Auto) 2.8 K/uL (1.8-7.7) Lymphocytes # (Auto) 2.0 K/uL (1.0-4.8) Monocytes # (Auto) 0.3 K/uL (0.1-1.0) Eosinophils # (Auto) 0.12 K/uL (0.00-0.70) Basophils # (Auto) 0.02 K/uL (0.00-0.20) Absolute Immature Granulocyte (auto 0.01 K/uL (0-1) Nucleated Red Blood Cells 0.0 % (0.0-0.19) Sodium Level 141 mmol/L (136-145) Potassium Level 3.7 mmol/L (3.5-5.1) Chloride Level 110 mmol/L (101-111) Carbon Dioxide Level 21 mmol/L (21-32) Blood Urea Nitrogen 18 mg/dL (7-18) Creatinine 1.0 mg/dL (0.5-1.0) Glomerular Filtration Rate Calc 71 mL/min (>90) Random Glucose 85 mg/dL (70-105) Total Calcium 7.9 mg/dL (8.5-10.1) L Magnesium Level 2.00 mg/dL (1.80-2.40) Total Creatine Kinase 33 U/L (21-232) # Troponin I High Sensitivity < 4 ng/L (4-50) L Influenza Type A Antigen Positive For Type A Influenza Type B Antigen Negative For Type B SARS-CoV-2, RNA, NAAT NEGATIVE SARS CoV-2 Urine Color LIGHT-YELLOW (YELLOW) Urine Appearance CLEAR (CLEAR) Urine pH 6.0 (5.0-8.0) Urine Specific [place] 1.027 (1.001-1.031) Urine Protein NEGATIVE mg/dL (NEGATIVE) Urine Glucose (UA) NEGATIVE mg/dL (NEGATIVE) Urine Ketones NEGATIVE mg/dL (NEGATIVE) Urine Occult Blood NEGATIVE (NEGATIVE) Urine Nitrate NEGATIVE (NEGATIVE) Urine Bilirubin NEGATIVE mg/dL (NEGATIVE) Urine Urobilinogen 0.2 mg/dL (0.2-1.0) Urine Leukocyte Esterase NEGATIVE Danielle/uL Urine Opiates Screen NEGATIVE (NEGATIVE) Urine Barbiturates Screen NEGATIVE (NEGATIVE) Urine Phencyclidine Screen NEGATIVE (NEGATIVE) Urine Amphetamines Screen NEGATIVE (NEGATIVE) Urine Benzodiazepines Screen NEGATIVE (NEGATIVE) Urine Cocaine Screen NEGATIVE (NEGATIVE) Urine Marijuana (THC) Screen NEGATIVE (NEGATIVE) Labs Reviewed?: Yes EKG/XRAY/US/CT/MRI EKG Comment 03/23/2025 time 7:24 p.m. Ventricular rate 52 Sinus rhythm [place] [address] wave elevation or depression X-RAY Comment IMAGING REPORT Signed PATIENT: BECKY STILES MR#: [id number] : 1980 SEX: F AGE: 44 LOCATION: [facility] ORDER 18 STATUS: [facility] REPORT#: [id number] SERVICE 17 REASON: vertigo ORDERING PHYSICIAN: SARAH KRUEGER MD PROCEDURE: CXR1VW - CHEST 1VW EXAM: CR Chest, 1 View. CLINICAL HISTORY: vertigo COMPARISON: None provided. FINDINGS: Stimulator in leads overlie the left upper hemithorax and left neck soft tissues. LUNGS: The lungs show no infiltrate or other acute finding. PLEURAL SPACES: No evidence of pleural effusion or pneumothorax. MEDIASTINUM: Cardiac size and mediastinal contours within normal limits. BONES: No acute osseous abnormality. Catheter overlying the right hemithorax is presumed external. IMPRESSION: No acute cardiopulmonary pathology is evident. /[place] DICTATED BY: BRYAN SINGER Jr., MD DATE: 03/23/252117 ELECTRONICALLY SIGNED BY: BRYAN SINGER Jr., MD DATE: 03/23/252117 CT Scan Comment [address] [address] IMAGING REPORT Signed PATIENT: BECKY STILES MR#: [id number] : 1980 SEX: F AGE: 44 LOCATION: [facility] ORDER 33 STATUS: [facility] REPORT#: [id number] SERVICE 32 REASON: vertigo ORDERING PHYSICIAN: SARAH KRUEGER MD PROCEDURE: HEAD WO - CT HEAD/BRAIN W/O CONTRAST EXAM: CT Head Without IV contrast. CLINICAL HISTORY: Vertigo. TECHNIQUE: Axial computed tomography images of the head/brain without intravenous contrast. COMPARISON: CT dated April 01, 2017. FINDINGS: BRAIN: No evidence of acute hemorrhage. No mass lesion. No CT evidence for acute territorial infarct. No midline shift or extra-axial collections. There are cystic encephalomalacic changes of the left occipitotemporal lobe as seen on the prior examination, with ex-vacuo dilatation of the left occipital horn. Again noted is a shunt catheter coursing through the right parietal calvarium with its intraventricular tip in the atria of the right lateral ventricle. There is a prominent CSF space in the sella VENTRICLES: No hydrocephalus. ORBITS: The orbits are unremarkable. SINUSES AND MASTOIDS: The paranasal sinuses and mastoid air cells are clear. BONES: No acute fracture. There is a left temporoparietal craniotomy with cranioplasty. SOFT TISSUES: Unremarkable. IMPRESSION: No acute intracranial abnormality. /[place] DICTATED BY: BRYAN SINGER Jr., MD DATE: 03/24/2511 ELECTRONICALLY SIGNED BY: BRYAN SINGER Jr., MD DATE: 03/24/2511 [facility] MDM: Differential diagnosis: Influenza, history of KNOCKOUT MACHINE OPERATOR shunt, vertigo, dehydration, Rationale: Tests considered and ordered secondary to shared decision making include: Previous outside records reviewed: Old ER visits. Risk of complication and/or morbidity or mortality of patient management: None Medications-Per medication reconciliation Need for hospitalization: Patient does not meet criteria for hospitalization. Need for emergency major/minor surgery: No Patient is a 44-year-old female coming in with the dizziness. Patient has a history of a KNOCKOUT MACHINE OPERATOR shunt in place. Patient states that the dizziness began earlier today although she does has a chronic history of vertigo. Laboratory workup was positive for influenza. Patient will be discharged in stable condition with Tamiflu. I also advised her appropriate follow up with PCP for ongoing management. Due to the patient's pain history of KNOCKOUT MACHINE OPERATOR shunt in place a CT head to be performed to rule out any hydrocephaly. ED Course Orders Procedure Category Date Status Time Cbc With Differential LAB 03/23/25 Complete 19:18 Chest 1vw RAD 03/23/25 Resulted 19:18 12 Lead Ekg Tracing- EKG 03/23/25 Logged Technical 19:18 Magnesium LAB 03/23/25 Complete 19:18 Creatine Kinase, Total LAB 03/23/25 Complete 19:18 Troponin I High LAB 03/23/25 Complete Sensitivity 19:18 Urinalysis Profile LAB 03/23/25 Complete 19:18 Basic Metabolic Panel LAB 03/23/25 Complete 19:18 Drug Screen Urine LAB 03/23/25 Complete 19:18 Covid Rna Naat LAB 03/23/25 Complete 19:24 Influenza Type A & B, LAB 03/23/25 Complete Rapid 19:24 Ct Head/Brain W/O CT 03/23/25 Resulted Contrast 19:33 0.9%Nacl 1000ml (Ns PHA 03/23/25 Complete 1000ml) 21:00 Current Medications Medications (Trade) Dose Ordered Sig/Romario Route PRN Reason Start Time Stop Time Status Last Admin Dose Admin Sodium Chloride 1,000 ml @ 0 mls/hr ONCE ONCE IV 03/23/25 21:00 03/23/25 21:01 DC 03/23/25 21:16 Vital Signs Date Time Temp Pulse Resp B/P (MAP) Pulse Ox O2 Delivery O2 Flow Rate FiO2 03/23/25 22:21 98.2 55 18 111/77 100 Room Air* 0 03/23/25 20:15 57 16 110/75 97 Room Air* 0 21 03/23/25 19:40 53 18 114/63 98 Room Air* 0 21 03/23/25 19:03 97.7 60 14 110/67 99 Room Air 0 DX & DISP Disposition: Discharge Departure Impression: Primary Impression: Influenza Condition: Stable Scripts Oseltamivir Phosphate (Tamiflu) 75 Mg Cap 1 CAP PO BID for 5 Days, #10 CAP 0 Refills Prov: SARAH KRUEGER MD 03/23/25 Additional Instructions: FOLLOW-UP WITH PRIMARY CARE PROVIDER IN 1 TO 2 DAYS. TAKE MEDICATIONS DIRECTED HERE IN THE EMERGENCY ROOM. OKAY TO CONTINUE HOME MEDICATIONS UNLESS OTHERWISE DISCUSSED DURING YOUR VISIT IN THE EMERGENCY ROOM TODAY. RETURN TO YOUR NEAREST EMERGENCY ROOM IF SYMPTOMS WORSEN OR IF THERE IS NO IMPROVEMENT. CALL 911 IF YOU NEED IMMEDIATE ASSISTANCE. TAKE TYLENOL [id number] NEEDED AND IF NO CONTRAINDICATIONS ARE PRESENT. INCREASE ORAL HYDRATION. A WOUND CULTURE OR URINE CULTURE WAS ORDERED HERE IN THE EMERGENCY ROOM DEPARTMENT PLEASE FOLLOW-UP WITH PRIMARY CARE PROVIDER AND ADVISE THEM TO GET REPORTS FROM OUR FACILITY. IF YOU HAD ANY TOSHA WRAP/SPLINTS THAT WERE APPLIED HERE, PLEASE DO NOT REMOVE THEM UNTIL YOU SEE YOUR PRIMARY CARE OR SPECIALTY. Referrals: Referrals: JAKE MARCUS MD (PCP) Time of Disposition: 23:22 SARAH KRUEGER MD Mar 23, 2025 20:11
--- NOTE | 2025-03-23 20:14 | NUR ---
PATIENT PLACED ON [place], MOTHER AT BEDSIDE.
--- NOTE | 2025-03-23 20:19 | HMCIMG ---
EXAM: CR Chest, 1 View. CLINICAL HISTORY: vertigo COMPARISON: None provided. FINDINGS: Stimulator in leads overlie the left upper hemithorax and left neck soft tissues. LUNGS: The lungs show no infiltrate or other acute finding. PLEURAL SPACES: No evidence of pleural effusion or pneumothorax. MEDIASTINUM: Cardiac size and mediastinal contours within normal limits. BONES: No acute osseous abnormality. Catheter overlying the right hemithorax is presumed external. IMPRESSION: No acute cardiopulmonary pathology is evident. /[place]
[2025-03-23 20:36] LABS: SARS-CoV-2, RNA, NAAT NEGATIVE SARS CoV-2 (NEGATIVE)
[2025-03-23 20:45] LABS: INFLUENZA TYPE B Negative For Type B (NEGATIVE)
[2025-03-23 20:48] LABS: INFLUENZA TYPE A Positive For Type A (NEGATIVE)
[2025-03-23] MEDS: 0.9%NACL 1000ML 1,000 ML IV ONE (21:16)
--- NOTE | 2025-03-23 21:40 | NUR ---
AT CT SCAN AT THIS TIME.
[2025-03-23 22:22] LABS: APPEARANCE,URINE CLEAR (CLEAR); GLUCOSE, URINE (UA) NEGATIVE (NEGATIVE); LEUKOCYTE ESTERASE ,URINE NEGATIVE Leu/uL (NEGATIVE); NITRATE,URINE NEGATIVE (NEGATIVE); OCCULT BLOOD,URINE NEGATIVE (NEGATIVE)
[2025-03-23 22:23] LABS: ADD UA MICROSCOPIC NO
[2025-03-23 22:30] LABS: AMPHET/METH SCREEN,URINE NEGATIVE (NEGATIVE); BARBITURATE SCREEN, URINE NEGATIVE (NEGATIVE); CANNABINOID SCREEN,URINE NEGATIVE (NEGATIVE); COCAINE SCREEN,URINE NEGATIVE (NEGATIVE)
--- NOTE | 2025-03-23 23:13 | HMCIMG ---
EXAM: CT Head Without IV contrast. CLINICAL HISTORY: Vertigo. TECHNIQUE: Axial computed tomography images of the head/brain without intravenous contrast. COMPARISON: CT dated April 01, 2017. FINDINGS: BRAIN: No evidence of acute hemorrhage. No mass lesion. No CT evidence for acute territorial infarct. No midline shift or extra-axial collections. There are cystic encephalomalacic changes of the left occipitotemporal lobe as seen on the prior examination, with ex-vacuo dilatation of the left occipital horn. Again noted is a shunt catheter coursing through the right parietal calvarium with its intraventricular tip in the atria of the right lateral ventricle. There is a prominent CSF space in the sella VENTRICLES: No hydrocephalus. ORBITS: The orbits are unremarkable. SINUSES AND MASTOIDS: The paranasal sinuses and mastoid air cells are clear. BONES: No acute fracture. There is a left temporoparietal craniotomy with cranioplasty. SOFT TISSUES: Unremarkable. IMPRESSION: No acute intracranial abnormality. /[place]
[2025-03-23] MEDS ORDERED: OSEL75 PO (23:22)
[2025-03-24 00:12] VITALS: BP 108/72; PULSE 58; RESP 18; TEMP 98; O2SAT 98
--- NOTE | 2025-03-24 08:25 | EKG ---
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
== END 2025-03-24 00:13 | disposition home or self-care (01) ==
LOC: EDH 19:03
DX: J11.1 Influenza due to unidentified influenza virus with other respiratory manifestations (principal); G40.909 Epilepsy, unspecified, not intractable, without status epilepticus; F41.9 Anxiety disorder, unspecified; Z79.899 Other long term (current) drug therapy; Z86.73 Personal history of transient ischemic attack (TIA), and cerebral infarction without residual deficits; Z98.2 Presence of cerebrospinal fluid drainage device; Z98.890 Other specified postprocedural states; Z20.822 Contact with and (suspected) exposure to COVID-19
CPT/HCPCS: 99284; 82550; 83735; 84484; 80048; 80305; 85025; 87804 ×2; 81003; 36415; 87635; 71045; 70450; 96360; 93005; J7030